=== PATIENT | female | born 1945 | race Caucasian/White ===

== ENCOUNTER → 2018-03-13 | Emergency (ER) | payer OTHER ==
[~2018-03-13] VITALS: Ht 167.6 cm; Wt 72.6 kg
[~2018-03-13] MED LIST: ALPRAZOLAM0.5 MG PO; BENTYL10 MG/ML; CEFTIN250 MG/5 M PO; LEVSIN/SL0.125 MG SL; Megace PO; NABUMETONE500 MG PO; NEURONTIN300 MG; PROTONIX40 MG PO; SYNTHROID50 MCG; ULTRACET PO; VASOTEC10 MG; XANAX XR0.5 MG; XANAX0.25 MG PO; ZANTAC25 MG/1 ML
== END | disposition home or self-care (01) ==
LOC: ER 21:38
DX: N39.0 Urinary tract infection, site not specified (principal); R10.32 Left lower quadrant pain

== ENCOUNTER 2018-04-11 17:09 | Emergency (ER) | payer OTHER ==
[~2018-04-11] VITALS: Ht 167.6 cm; Wt 72.6 kg
== END 2018-04-12 00:39 | disposition home or self-care (01) ==
LOC: ER 17:09
DX: R10.31 Right lower quadrant pain (principal)

== ENCOUNTER 2018-08-03 14:30 | Inpatient (IN) | payer OTHER, BC ==
[~2018-08-03] VITALS: Ht 167.6 cm; Wt 70.3 kg
[2018-08-04] MEDS ORDERED: NEURONTIN300 MG PO (07:57)
[2018-08-04] MEDS ORDERED: [UNRECOGNIZED DRUG - OTHER] PO (07:57)
[2018-08-04] MEDS ORDERED: BENTYL10 MG/1 ML IM (07:58)
[2018-08-04] MEDS ORDERED: INTESTINEX680 M1 PO (07:58)
[2018-08-04] MEDS ORDERED: PROBIOTIC1 EAC1 PO (08:02)
[2018-08-13] MEDS ORDERED: LEVSIN0.125 MG PO (15:32)
[2018-08-13] MEDS ORDERED: NORFLEX100MG PO (16:46)
[2018-08-13] MEDS ORDERED: INTESTINEX680 M1 PO (16:47)
[2018-08-13] MEDS ORDERED: PROTONIX40 MG PO (16:47)
[2018-08-13] MEDS ORDERED: OXYC1TAB9 PO (16:47)
[2018-08-13] MEDS ORDERED: INTEGRA F CAPS1 EACH PO (16:48)
[2018-08-13] MEDS ORDERED: LEVSIN/SL0.125 MG SL (16:48)
== END 2018-08-13 18:34 | disposition home or self-care (01) | DRG 337 ==
LOC: O/R 14:30 → SURH 08-10 06:14 → O/R 08-10 11:00 → SURH 08-10 13:42 → O/R 08-10 14:30 → SURH 08-13 18:34
PROVIDERS: Surgery
PROC: 0DN84ZZ Release Small Intestine, Percutaneous Endoscopic Approach (ICD-10-PCS; principal; 2018-08-10 11:00)
DX: K56.51 Intestinal adhesions [bands], with partial obstruction (principal); R10.32 Left lower quadrant pain; G89.18 Other acute postprocedural pain; R73.03 Prediabetes

== ENCOUNTER 2019-07-02 09:20 | Emergency (ER) | payer OTHER ==
[~2019-07-02] VITALS: Ht 167.6 cm; Wt 77.1 kg
[~2019-07-02 09:20] MED LIST changes: +BENTYL10 MG/1 ML IM; +INTEGRA F CAPS1 EACH PO; +INTESTINEX680 M1 PO; +LEVSIN0.125 MG PO; +NEURONTIN300 MG PO; +NORFLEX100MG PO; +OXYC1TAB9 PO; +PROBIOTIC1 EAC1 PO; +[UNRECOGNIZED DRUG - OTHER] PO
[2019-07-02] MEDS ORDERED: ASA325 MG (09:36)
== END 2019-07-02 18:47 | disposition home or self-care (01) ==
LOC: ER 09:20
DX: K60.0 Acute anal fissure (principal)

== ENCOUNTER 2019-08-03 09:45 | Day surgery (SDC) | payer OTHER ==
[~2019-08-03 09:45] MED LIST changes: +ASA325 MG
== END 2019-08-03 15:35 | disposition home or self-care (01) ==
LOC: CIR.AMB 09:45
DX: K64.8 Other hemorrhoids (principal)

== ENCOUNTER 2021-09-26 11:55 | Inpatient (IN) | payer OTHER ==
[~2021-09-26] VITALS: Ht 165.1 cm; Wt 57.6 kg
[2021-09-26] MEDS ORDERED: ENALAPRIL MALE2.5 MG (12:31)
[2021-09-26] MEDS ORDERED: GLUMETZA500 MG (12:32)
[2021-10-01] MEDS ORDERED: AMOX1TAB5 PO (11:03)
[2021-10-01] MEDS ORDERED: INTESTINEX680 M1 PO (11:03)
== END 2021-10-01 14:24 | disposition home or self-care (01) | DRG 390 ==
LOC: ER 11:55 → SURH 21:19
PROVIDERS: ADMIT Surgery; ATTEND Surgery
PROC: 3E0F7SF Introduction of Other Gas into Respiratory Tract, Via Natural or Artificial Opening (ICD-10-PCS; principal; 2021-09-26)
DX: K56.609 Unspecified intestinal obstruction, unspecified as to partial versus complete obstruction (principal); Z20.822 Contact with and (suspected) exposure to COVID-19

== ENCOUNTER 2022-07-03 17:13 | Inpatient (IN) | payer OTHER ==
[~2022-07-03] VITALS: Ht 167.6 cm; Wt 72.6 kg
[~2022-07-03 17:13] MED LIST changes: +AMOX1TAB5 PO; +ENALAPRIL MALE2.5 MG; +GLUMETZA500 MG
[2022-07-08] MEDS ORDERED: PEPCID20 MG PO (12:13)
[2022-07-08] MEDS ORDERED: PROTONIX40 MG PO (12:13)
[2022-07-08] MEDS ORDERED: INTESTINEX680 M1 PO (12:13)
== END 2022-07-08 13:16 | disposition home or self-care (01) | DRG 391 ==
LOC: ER 17:13 → MEDJ 22:41 → SURG 22:41 → MEDJ 07-04 01:11 → SURG 07-05 09:11
PROVIDERS: ADMIT Surgery; ATTEND Surgery
PROC: BW21ZZZ Computerized Tomography (CT Scan) of Abdomen and Pelvis (ICD-10-PCS; principal; 2022-07-03)
DX: K57.90 Diverticulosis of intestine, part unspecified, without perforation or abscess without bleeding (principal); U07.1 COVID-19; N39.0 Urinary tract infection, site not specified; K56.7 Ileus, unspecified; B96.29 Other Escherichia coli [E. coli] as the cause of diseases classified elsewhere; R73.03 Prediabetes